=== PATIENT | female | born 1990 | race Hispanic/Latino ===

== ENCOUNTER → 2019-07-25 | Outpatient (CLI) | payer OTHER ==
--- NOTE | 2019-07-25 21:26 | ECGEPIP ---
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
== END ==
LOC: M EKG 13:13
PROVIDERS: ATTEND Advanced Practice Midwife
DX: E11.9 Type 2 diabetes mellitus without complications (principal)

== ENCOUNTER → 2019-10-19 | Outpatient (CLI) | payer OTHER ==
--- NOTE | 2019-10-19 10:57 | REP ---
REASON FOR EXAM: anatomy. COMPARISON: None. Multiple ultrasonographic images of the gravid uterus show a single living intrauterine gestation in the kami breech presentation. Doppler interrogation of the heart shows a heart rate of 165 beats per minute. The placenta is posterior and not low lying. The subjective amniotic fluid volume is within normal limits. The cervix measures 3.3 cm in length and is closed. Evaluation of the maternal adnexal spaces show no abnormalities. BPD 5.7 cm = 23 weeks 3 days HC 22.1 cm = 24 weeks 1 day AC 20.2 cm = 24 weeks 6 days FL 4.3 cm = 24 weeks 1 day The estimated weight is 694 grams which is at the 57th percentile for a 24 week 0 day gestational age. anatomical structures seen as unremarkable are as follows: cranium, four chamber heart, stomach, cord insertion, three vessel umbilical cord, kidneys, urinary bladder, and extremities. Structures suboptimally visualized are as follows: thalami, cavum septum pellucidum, cerebellum, cisterna magna, right and left ventricular outflow tracts, and spine. IMPRESSION: Single living intrauterine gestation as described above with an estimated gestational age of 24 weeks 1 day via composite criteria and an estimated date of delivery of 02/07/2020 by today's exam. No anomalies were detected, however, I recommend a followup examination to better image those structures not well seen today as described above. Electronically Signed by Binh Valdez DO 10/19/2019 11:10 A
== END ==
LOC: M RAD 09:26
PROVIDERS: ATTEND Obstetrics & Gynecology
DX: Z34.82 Encounter for supervision of other normal pregnancy, second trimester (principal); Z3A.23 23 weeks gestation of pregnancy

== ENCOUNTER 2020-01-21 08:27 | Inpatient (IN) | payer OTHER ==
[~2020-01-21] VITALS: Ht 154.9 cm; Wt 126.6 kg
[2020-01-21 08:50] VITALS: BP 115/67
[2020-01-21] MEDS ORDERED: NS 1,000 ML IV SCH ×2 (09:15→09:58)
[2020-01-21] MEDS ORDERED: LACTATED RINGER'S 1000 ML IV ONE (09:15)
[2020-01-21] MEDS ORDERED: PENICILLIN G POTASSIUM IV 5 MU in D5W MINI-BAG PLUS 100 ML IV STA (09:52)
[2020-01-21 09:55] LABS: HEMATOCRIT 36.5 % (36.0-47.0); HEMOGLOBIN 11.6 g/dl (12.0-15.5); MEAN CORPUSCULAR HEMOGLOBIN 26.7 pg (27.0-33.0); MEAN CORPUSCULAR HGB CONC 31.8 g/dl (32.0-36.5); MEAN CORPUSCULAR VOLUME 83.9 fl (80.0-96.0); PLATELET COUNT, AUTOMATED 265 10^3/uL (150-450); RED BLOOD COUNT 4.35 10^6/uL (4.00-5.40); WHITE BLOOD COUNT 8.5 10^3/uL (4.0-10.0)
[2020-01-21] MEDS ORDERED: INSULIN REGULAR IN 0.9 % NACL 100 UNIT in IV 1 EA IV SCH ×2 (09:58)
[2020-01-21] MEDS ORDERED: INSULIN IV RATE CHANGE DOCUMENTATION ML/HR XX SCH (10:00)
[2020-01-21] MEDS ORDERED: INSUN SC ×2 (10:03)
[2020-01-21] MEDS ORDERED: NOVOINJ SC (10:03)
[2020-01-21] MEDS ORDERED: INSUH10VL SC (10:03)
[2020-01-21 10:05] LABS: GLUCOSE,RANDOM 84 MG/DL (LESS THAN 200)
[2020-01-21] MEDS ORDERED: ASPI81CH33 PO (10:05)
[2020-01-21] MEDS ORDERED: ESSE250T PO (10:05)
[2020-01-21] MEDS ORDERED: PRENTAB9 PO (10:05)
[2020-01-21 10:49] LABS: HEMOGLOBIN A1c 7.1 %
--- NOTE | 2020-01-21 12:20 | HPE ---
DATE OF ADMISSION: 01/21/2020 HISTORY: This lady is a 29-year-old, 4, para 1, abort 2, last menstrual period (LMP) uncertain. Estimated date of confinement (EDC) is 02/08/2020, at 37 and 3 weeks of gestation, with a history spontaneous rupture of membranes of clear liquor and no labor. Risk factors are she has a body mass index (BMI) of 47.4, class 3 obesity. She is noncompliant regarding her insulin or her appointments. Last seen was 10/06/2019. She has a history of depression. She is unknown group B streptococcus (GBS) status, was chlamydia positive, test of cure was negative, and by age induration of diabetes she is class C. She started at age 18 taking metformin and then she discontinued, and then when she was she declined to use her insulin, and she did use of insulin in this she never really was compliant or well-controlled. PAST HISTORY: June 2016, 40 weeks, spontaneous delivery, 6 pounds 14 ounces female. 2014, spontaneous . 2019, spontaneous . She does not know the types of insulin that she is taking except one is clear and is cloudy, and she did not take her insulin this morning. In reviewing her chart from September, she was suppose to take NovoLog 10 and NPH 20 at breakfast, at dinner NovoLog 8 and at bedtime NPH of 8. She could not produce for us any sugar logs. Labs are O+. HIV negative. Hepatitis negative. RPR negative. Rubella, varicella immune. Pap normal. Urine negative. Gonorrhea and chlamydia are negative. Her 1-hour glucose was 299. GBS status was unknown. Blood pressure is 115/83, respirations are 20, pulse is 83, and temperature is 97.8. Hemoglobin 11.6, hematocrit 36.5, platelets are 265, and her spot glucose is 84. Her A1c is 7.4. Her mean plasma glucose is 157. Our plan of care, first of all she is grossly ruptured, Nitrazine positive and copious amount of fluid. On digital examination, the cervix is very posterior. Presenting part is not in the pelvis. It appears to be either transverse or difficult to assess because of her BMI status. She does have a category 1 strip and ultrasound is pending. Our plan of management is to give her prophylactic antibiotics for GBS, start an insulin drip, ultrasound for evaluation, position and weight. Notify neonatology. The patient understands the plan of care. The rest examination unremarkable. Normocephalic, atraumatic. Neck full range of motions. Pupils equal and reactive to light. Distal pulses symmetric. No evidence of deep venous thrombosis (DVT), pulmonary embolism (PE), or superficial phlebitis. Chest is clear bilaterally bases. No wheezes or rhonchi. No costovertebral angle (CVA) tenderness. Abdomen is soft, four quadrant bowel sounds are noted. She has no urgency or frequency. No nausea, vomiting, diarrhea, or constipation. In summary, we have a 37+ week of gestation, uncontrolled class C diabetic with an unstable lie.
--- NOTE | 2020-01-21 12:56 | IPN ---
DATE: 01/21/2020 This lady is a 29-year-old 3, para 1 who came in with spontaneous rupture of membranes at 37 weeks of gestation. She is a noncompliant patient. She is a class C diabetic who intermittently takes her insulin. She does not come to the appropriate appointments, but she came in because of spontaneous rupture of membranes of clear liquor. GBS status was unknown. We examined her and could not find the presenting part and therefore we did a bedside ultrasound, which indicated there was a live intrauterine fetus in breech presentation. heart rate was 124. Placenta was grade 2, the amniotic fluid showed an hydramnios because of her premature rupture of membranes. She sonographically was estimated at 37 and 1 weeks' of gestation, estimated weight was 3293 grams, 7 pounds 4 ounces at the 61st percentile for 37 weeks. The other interesting aspect is that the ST ratio was 3.08, which is elevated over the high normal of 2.60. We discussed the findings with the patient because the fetus was not in the pelvis and documentation shows that it is a breech presentation. The patient admitted to having decreased movement since last evening which may or may not account for position and/or elevated ST ratio. We explained to the patient that the best option and the safest option at this time with decreased movement and kami breech presentation, elevated ST ratio, uncontrolled diabetes would be a primary section under appropriate antibiotic umbrella and the NICU in attendance. The patient declined to have a section saying it was not an option. Her other comments which were quite striking is that if is an animal has a baby in and it dies, they can always have another one and she seems to be quite complacent with the fact this baby has an adverse outcome, she can always have another baby. The other issue was that she is quite disappointed it is not a male. She already says she has a female at home and she was also saying that she has to think of her 3-year-old at home as opposed to this baby. We are awaiting her to come to have a consultation regarding the safest method of delivery for this baby and the patient. In the meantime, there is a category one strip. There is no contractions, copious amount of fluid and still high presenting part.
[2020-01-21] MEDS ORDERED: ACETAMINOPHEN 650 MG SUPP PR SCH (13:15)
[2020-01-21] MEDS ORDERED: ceFAZolin SOD 2 GM in IV 1 EA IV ONE (13:15)
[2020-01-21] MEDS ORDERED: BUPIVACAINE HCL 0.25% 10ML VIAL SC ONE (13:15)
[2020-01-21] MEDS ORDERED: BICITRA 30ML SOLN UDC PO ONE (13:15)
[2020-01-21] MEDS ORDERED: MORPHINE PRES-FREE INJ 10 MG/10 ML VIAL (J2274) As Ordered ONE (13:34)
[2020-01-21] MEDS ORDERED: OXYTOCIN 30 UNITS IN 0.9% NaCl 500ML IV BAG (J2590) As Ordered ONE ×2 (13:35→16:22)
[2020-01-21] MEDS ORDERED: OXYTOCIN INJ 10 UNITS/ML VIAL (J2590) As Ordered ONE ×2 (13:36→14:46)
[2020-01-21] MEDS ORDERED: ACETAMINOPHEN 650 MG SUPP As Ordered ONE (13:37)
[2020-01-21] MEDS ORDERED: ONDANSETRON 4MG/2ML VIAL As Ordered ONE (13:38)
[2020-01-21] MEDS ORDERED: ePHEDrine SULFATE 25 MG/5 ML(5MG/ML) SYRINGE As Ordered ONE (13:38)
[2020-01-21] MEDS ORDERED: dexameTHASONE 4 MG/ML 1ML VIAL (J1100 PER 1MG) As Ordered ONE (13:38)
[2020-01-21] MEDS ORDERED: KETOROLAC 60MG 2ML VIAL As Ordered ONE (13:38)
[2020-01-21] MEDS ORDERED: PHENYLephrine HCL 500 MCG/5 ML (100MCG/ML) SYRINGE (J2370) As Ordered ONE ×2 (13:38→14:23)
[2020-01-21] MEDS ORDERED: AZITHROMYCIN INJ 500 MG, VIAL MATE ADAPTER 1 EACH in D5W 250 ML IV ONE (14:00)
[2020-01-21] MEDS ORDERED: PENICILLIN G POTASSIUM IV 2.5 MU in IV 1 EA IV SCH (14:00)
[2020-01-21] MEDS ORDERED: ACETAMINOPHEN 650 MG SUPP PR ONE (14:00)
[2020-01-21] MEDS ORDERED: NALBUPHINE HCL 10 MG/ML AMP (J2300) IV PRN (14:10)
[2020-01-21] MEDS ORDERED: ONDANSETRON 4MG/2ML VIAL IV PRN (14:10)
[2020-01-21] MEDS ORDERED: METOCLOPRAMIDE INJ 10MG/2ML VIAL (J2765 PER 1) IV PRN (14:10)
[2020-01-21] MEDS ORDERED: NALOXONE INJ 0.4MG/1ML VIAL (J2310 PER 1MG) IV PRN ×2 (14:10)
[2020-01-21] MEDS ORDERED: diphenhydrAMINE 50MG/ML VIAL (J1200) IV PRN (14:10)
[2020-01-21] MEDS ORDERED: MIDAZOLAM INJ 2MG/2ML VIAL (J2250 PER 1MG) As Ordered ONE (14:42)
[2020-01-21 14:51] LABS: CORD GAS ABE V -1.2; CORD GAS HCO3 V 25.4 MEQ/L; CORD GAS O2 SAT V 74.6 %; CORD GAS PCO2 V 49.2 mmHg; CORD GAS PH V 7.33 UNITS; CORD GAS PO2 V 32.7 mmHg; CORD GAS SBC V 22.9 MEQ/L; CORD GAS TCO2 V 26.9 MEQ/L
[2020-01-21 14:52] LABS: CORD GAS ABE A -0.7; CORD GAS HCO3 A 28.7 MEQ/L; CORD GAS O2 SAT A 15.2 %; CORD GAS PCO2 A 69.1 mmHg; CORD GAS PH A 7.236 UNITS; CORD GAS PO2 A 11.4 mmHg; CORD GAS SBC A 21.9 MEQ/L; CORD GAS TCO2 A 30.8 MEQ/L
[2020-01-21] MEDS ORDERED: propofoL 200 MG/20 ML VIAL As Ordered ONE (14:54)
[2020-01-21] MEDS ORDERED: LIDOCAINE 2% 100MG/5ML SDV (FOR ANES.) As Ordered ONE (15:06)
--- NOTE | 2020-01-21 15:23 | REP ---
OB ULTRASOUND FOLLOWUP: 01/21/2020. COMPARISON: 10/19/2019 CLINICAL HISTORY: Supervision of . Premature rupture of membranes. Evaluate weight and lie. FINDINGS: By initial ultrasound, she would be 37 weeks 4 days with EDC 02/07/2020. Today's study shows a single intrauterine gestation in breech position. There is a posterior grade 2 placenta but no previa or abruption. There is anhydramnios with no measurable fluid. motion was observed. Cervix is obscured on these images. BIOMETRY:BPD 8.9 cm = 36 weeksHC 32.7 cm = 37 weeks 1 dayAC 34.7 cm = 38 weeks 4 daysFL 7.2 cm = 37 weeksHL 6.3 cm = 36 weeks 5 days This gives average ultrasound age 37 weeks 1 day with EDC 02/10/2020. Measurement ratios are in the normal range. Estimated weight 3293 grams or 7 pounds 4 ounces. This is 61st percentile for her dating. [place] umbilical artery Doppler shows an S/D ratio of 3.08 with a normal range 1.6-2.6. Forward diastolic flow was maintained throughout, resistive index is 0.68. heart rate 124 and regular. IMPRESSION: 1. Single intrauterine gestation in breech position with a posterior grade 2 placenta without previa or abruption. Cervix obscured. 2. There is no visible amniotic fluid. heart rate 124. 3. Elevated umbilical artery Doppler S/D ratio 3.08 with a normal range up to 2.6. Forward diastolic flow is maintained throughout. 4. Average ultrasound age by today's exam, 37 weeks 1 day, by initial exam 37 weeks 4 days, by LMP 37 weeks 3 days. Estimated weight 61st percentile for 37 weeks 3 days and is 3293 grams or 7 pounds 4 ounces. Electronically Signed by Piyush Richard MD 01/21/2020 07:08 P
[2020-01-21] MEDS ORDERED: LR 1,000 ML IV SCH (15:57)
[2020-01-21] MEDS ORDERED: RHOGAM 300 MCG (1500 IU) INJ (J2790) IM SCH (16:00)
[2020-01-21] MEDS ORDERED: MOM 30ML SUSPENSION UDC PO PRN (16:00)
[2020-01-21] MEDS ORDERED: ACETAMINOPHEN 650 MG SUPP PR PRN (16:00)
[2020-01-21] MEDS ORDERED: METHYLERGONOVINE MALEATE 0.2 MG TAB PO PRN (16:00)
[2020-01-21] MEDS ORDERED: DOCUSATE SODIUM 100 MG CAP PO PRN (16:00)
[2020-01-21] MEDS ORDERED: IBUPROFEN 600MG TAB PO PRN (16:00)
[2020-01-21] MEDS ORDERED: PERCOCET 5MG/325MG TAB PO PRN ×2 (16:00)
[2020-01-21] MEDS ORDERED: OXYTOCIN INJ 10 UNITS/ML VIAL (J2590) IV ONE (16:00)
[2020-01-21] MEDS ORDERED: ANUSOL HC CREAM 30GM TOP PRN (16:00)
[2020-01-21] MEDS ORDERED: ACETAMINOPHEN TAB 650MG DOSE (2X325MG) PO PRN (16:00)
[2020-01-21] MEDS ORDERED: MEASLES,MUMPS,RUBELLA VACCINE INJ (MMR-II) (90707) SC SCH (16:00)
[2020-01-21] MEDS ORDERED: IBUPROFEN 800 MG TAB PO PRN (16:00)
[2020-01-21] MEDS: OXYTOCIN DRIP 30 UNITS in IV 1 EA IV SCH ×3 (16:33→23:57)
[2020-01-21 17:00] VITALS: BP 124/61
[2020-01-21 17:30] VITALS: BP 141/70
[2020-01-21 18:30] VITALS: BP 132/66
[2020-01-21] MEDS: MAGNESIUM OXIDE 400 MG TAB (MAG-OX) PO SCH (19:09)
[2020-01-21 19:30] VITALS: BP 133/72
[2020-01-21] MEDS: KETOROLAC 30 MG/ML 1ML VIAL IV SCH (21:59)
[2020-01-21 22:00] VITALS: BP 141/84
[2020-01-22] MEDS ORDERED: NS 800 ML IV ONE (01:30)
[2020-01-22 02:00] VITALS: BP 138/64
[2020-01-22] MEDS: KETOROLAC 30 MG/ML 1ML VIAL IV SCH ×2 (02:54→07:59)
[2020-01-22] MEDS ORDERED: NS 1,000 ML IV SCH (05:30)
[2020-01-22 06:00] VITALS: BP 129/74
[2020-01-22 07:47] LABS: MEAN CORPUSCULAR HEMOGLOBIN 26.8 pg (27.0-33.0); MEAN CORPUSCULAR HGB CONC 31.8 g/dl (32.0-36.5); MEAN CORPUSCULAR VOLUME 84.3 fl (80.0-96.0); PLATELET COUNT, AUTOMATED 255 10^3/uL (150-450); RED BLOOD COUNT 3.32 10^6/uL (4.00-5.40); WHITE BLOOD COUNT 10.5 10^3/uL (4.0-10.0)
[2020-01-22] MEDS: PRENATAL VITAMINS CHEWABLE TABLET PO SCH (07:58)
[2020-01-22] MEDS: MAGNESIUM OXIDE 400 MG TAB (MAG-OX) PO SCH (07:58)
[2020-01-22 08:00] LABS: HEMOGLOBIN 8.9 g/dl (12.0-15.5)
[2020-01-22] MEDS ORDERED: PRENATAL VITAMINS CHEWABLE TABLET PO SCH (09:00)
[2020-01-22 10:00] VITALS: BP 114/58
--- NOTE | 2020-01-22 10:11 | IPN ---
DATE: 01/22/2020 DAY #1/POSTOPERATIVE DAY #1: This lady is a 29-year-old, 4, now para 2, who was admitted with premature rupture of membranes at 37 weeks, status group B streptococcus (GBS) unknown. Her risk factors, she is a class C diabetic, body mass index (BMI) of 47.4, noncompliant, kami breech presentation with premature rupture of membranes, elevated ST ratio, depression, and she had a primary section for a live female 8 pounds 2 ounces (3680 grams), score of 9 and 9 at one and five minutes, respectively. She had an arterial blood gas of 7.23 with a base excess of -0.7, venous pH of 7.33, base excess of -1.2. On her first day, we discussed phlebitis, cystitis, mastitis, endometritis, cellulitis, diet, exercise, pain management, perineal breast and wound care. Soria catheter has just been removed. The patient is going to attempt to void. Overnight she had some issues with pain control, which are now under control. She is not planning on breast-feeding at the present time. We discussed the use of sequentials in order to decrease the incidence of pulmonary embolism (PE) and deep venous thrombosis (DVT) as her BMI is elevated, and also the use of the incentive spirometry machine. The patient expressed understanding of same. Our plans are for possible discharge tomorrow. Baby will be reviewed by the pre kindergarten teacher as it is a large for gestational age for 37 weeks. Due to the uncontrolled diabetes, we have ordered her lab work including a fasting and A1c to evaluate the issues regarding her diabetes. During her , she intermittently took her insulin, when she is off she intermittently takes metformin. Plans are to re-educate her regarding the use of the metformin. Also, the patient really needs to have weight reduction, exercise, all which will be discussed prior to discharge. She should have a 2-week incision check, a 6-week check.
[2020-01-22 14:00] VITALS: BP_SYST 114; BP_SYST 120; BP_DIAS 58; BP_DIAS 64
[2020-01-22] MEDS: IBUPROFEN 800 MG TAB PO SCH (17:34)
[2020-01-22 18:00] VITALS: BP 137/72
[2020-01-22 22:00] VITALS: BP 123/67
[2020-01-23] MEDS: IBUPROFEN 800 MG TAB PO SCH ×2 (01:04→08:28)
[2020-01-23 02:00] VITALS: BP 114/65
[2020-01-23 06:00] VITALS: BP 145/67
--- NOTE | 2020-01-23 07:53 | IPNPDOC ---
Progress Note Date of Service: Jan 23, 2020 Day#: 2 Progress Note SUBJECT: Patient is a 29 yo s/p PLTCD for breech presentation POD #2. Serafin hall has history of DM and was on metformin and stopped about 2 yrs prior to being . patient is on insulin throughout this , though she missed her care completely during the third trimester. Today without concerns. She has been ambulating, voiding spontaneously without issue and tolerating regular diet. Breast feeding without issue. Reports lochia is like a normal period. patient plans on oral contraceptive . OBJECTIVE: VITAL SIGNS: Within normal limits, afebrile. Alert and oriented times three. Abdomen: Fundus firm at U-2, abdomen Soft, appropriately tender, dressing on LE: symmetrical bilateral edema, non pitting, non tender, no erythema A/P pod #2, doing well. glucose has been normal throughout hospital stay. discussed care. start norqd 2 weeks . plan for discharge home today with close interval f/u in clinic. Le, DO VS, I&O, 24H, Fishbone Vital Signs/I&O Vital Signs Date Time Temp Pulse Resp B/P (MAP) Pulse Ox O2 Delivery O2 Flow Rate FiO2 01/23/20 06:00 97.9 67 18 145/67 (93) 98 Room Air I&O- Last 24 Hours up to 6 AM 01/23/20 05:59 Output Total 375 ml Balance -375 ml Laboratory Data 24H LABS Laboratory Tests 2 01/22/20 10:34: Glucose 2 Hour Postprandial 78 01/22/20 16:30: Bedside Glucose (Misc Panel) 101 01/22/20 22:09: Bedside Glucose (Misc Panel) 73 01/23/20 06:05: Bedside Glucose (Misc Panel) 63L TOMER SMITH DO Jan 23, 2020 07:53
--- NOTE | 2020-01-23 07:54 | OBDS ---
[facility] Obstetrical Discharge Sum. Obstetrical Discharge Summary : 4 Term: 2 Pre-term: 0 Abortions: 2 Livin VDRL: Non-Reactive Rh: Positive Rubella: Immune Infant Weight: pounds (8), ounces (0) Anesthesia: Regional Anesthesia A/P, Post Course List any complications Admission diagnosis: 1. Rupture membranes at 37+3wks 2. breech presentation 3. Morbid Obesity 4. Diabetes Discharge diagnosis: 1. 2. Status post primary low transverse section 3. Morbid obesity 4. Diabetes Condition at Discharge: stable Discharge Instructions: Home Activity: as tolerated Diet: diabetic diet Medications: filled at [facility] Follow-up: Call [facility] to make 1-[address] Wheat Hospital Course: Patient presented with rupture of membranes at 37+3wks gestation and breech presentation. She underwent primary low transverse section. course uncomplicated. Patient discharged home on day #2. DO LUIS Gillespie LUAT N. DO Jan 23, 2020 01:39
[2020-01-23] MEDS: PRENATAL VITAMINS CHEWABLE TABLET PO SCH (08:27)
[2020-01-23] MEDS: MAGNESIUM OXIDE 400 MG TAB (MAG-OX) PO SCH (08:27)
[2020-01-23 10:00] VITALS: BP 124/58
== END 2020-01-23 12:45 | disposition home or self-care (01) | DRG 771 ==
LOC: M LDO 08:27 → M LDI 09:01 → M OBS 16:50
PROVIDERS: ADMIT Obstetrics & Gynecology; ATTEND Obstetrics & Gynecology
PROC: 10D00Z1 Extraction of Products of Conception, Low, Open Approach (ICD-10-PCS; principal; 2020-01-21 14:00)
DX: O32.1XX0 Maternal care for breech presentation, not applicable or unspecified (principal); O24.12 Pre-existing type 2 diabetes mellitus, in childbirth; Z3A.37 37 weeks gestation of pregnancy; E66.9 Obesity, unspecified; Z91.14 Patient's other noncompliance with medication regimen; E11.65 Type 2 diabetes mellitus with hyperglycemia; Z79.4 Long term (current) use of insulin; O99.214 Obesity complicating childbirth; O42.02 Full-term premature rupture of membranes, onset of labor within 24 hours of rupture; Z37.0 Single live birth

== ENCOUNTER 2020-01-31 09:42 | Emergency (ER) | payer OTHER ==
[~2020-01-31] VITALS: Ht 154.9 cm; Wt 125.2 kg
[~2020-01-31 09:42] MED LIST: ASPI81CH33 PO; ESSE250T PO; INSUH10VL SC; INSUN SC; NOVOINJ SC; PRENTAB9 PO
[2020-01-31] MEDS ORDERED: ACET-861 PO (09:49)
[2020-01-31] MEDS ORDERED: DOCU100C16 PO (09:49)
[2020-01-31] MEDS ORDERED: NS 1,000 ML IV ONE (10:30)
[2020-01-31] MEDS ORDERED: ACETAMINOPHEN 500 MG TAB PO ONE (10:30)
[2020-01-31 11:00] LABS: BASO % 0.4 % (0.0-1.0); EOS # 0.1 10^3/uL (0.0-0.5); EOS % 1.9 % (0.0-3.0); HEMATOCRIT 27.1 % (36.0-47.0); HEMOGLOBIN 8.4 g/dl (12.0-15.5); LYMPH # 1.6 10^3/uL (1.5-5.0); LYMPH % 22.6 % (24.0-44.0); MEAN CORPUSCULAR HEMOGLOBIN 26.8 pg (27.0-33.0); MEAN CORPUSCULAR VOLUME 86.6 fl (80.0-96.0); MONO # 0.5 10^3/uL (0.0-0.8); MONO % 6.4 % (0.0-5.0); NEUTROPHILS # 4.8 10^3/uL (1.5-8.5); NEUTROPHILS % 66.5 % (36.0-66.0); PLATELET COUNT, AUTOMATED 384 10^3/uL (150-450); RED BLOOD COUNT 3.13 10^6/uL (4.00-5.40); WHITE BLOOD COUNT 7.2 10^3/uL (4.0-10.0)
[2020-01-31 11:08] LABS: PROTHROMBIN TIME 12.9 SECONDS (11.8-14.0)
[2020-01-31 11:09] LABS: PARTIAL THROMBOPLASTIN TIME 30.9 SECONDS (25.0-38.4)
[2020-01-31 11:09] LABS: APPEARANCE, URINE CLEAR (CLEAR); BACTERIA, URINE AUTO NEGATIVE (NEGATIVE); BILIRUBIN, URINE AUTO NEGATIVE (NEGATIVE); BLOOD, URINE BLOOD 3+ (NEGATIVE); COLOR, URINE YELLOW (YELLOW); GLUCOSE, URINE (UA) AUTO NEGATIVE (NEGATIVE); KETONE, URINE AUTO NEGATIVE (NEGATIVE); LEUKOCYTE ESTERASE, URINE AUTO NEGATIVE (NEGATIVE); NITRITE, URINE AUTO NEGATIVE (NEGATIVE); PROTEIN, URINE AUTO NEGATIVE (NEGATIVE); RBC, URINE AUTO 6 /HPF (0-3); SPECIFIC GRAVITY URINE AUTO 1.011 (1.002-1.035); SQUAMOUS EPITHELIAL CELL UR AU 0 /HPF (0-6); UROBILINOGEN, URINE AUTO 0.2 mg/dL (0.0-2.0); WBC, URINE AUTO 1 /HPF (0-3)
[2020-01-31 11:10] LABS: ALBUMIN 2.5 GM/DL (3.2-5.2); ALT/SGPT 21 U/L (12-78); BILIRUBIN,DIRECT < 0.1 MG/DL (0.0-0.2); BILIRUBIN,TOTAL 0.3 MG/DL (0.2-1.0); BLOOD UREA NITROGEN 9 MG/DL (7-18); CALCIUM LEVEL 8.9 MG/DL (8.5-10.1); CARBON DIOXIDE LEVEL 28 MEQ/L (21-32); CHLORIDE LEVEL 106 MEQ/L (98-107); GLOMERULAR FILTRATION RATE > 60.0 (>60); GLUCOSE, FASTING 94 MG/DL (70-100); MAGNESIUM LEVEL 1.7 MG/DL (1.8-2.4); POTASSIUM SERUM 4.4 MEQ/L (3.5-5.1); SODIUM LEVEL 141 MEQ/L (136-145); TOTAL PROTEIN 5.9 GM/DL (6.4-8.2)
--- NOTE | 2020-01-31 11:47 | REP ---
Head CT without contrast: History: Migraines since . Posterior occipital. Dizziness. Comparison study: No comparison brain imaging. CT findings: Bone window settings demonstrate an intact bony calvarium. There is no evidence of skull fracture or incidental bony calvarial lesion. The visualized paranasal sinuses appear clear. No intraorbital abnormality is seen. On soft tissue window setting images; the lateral, third, and fourth ventricles are normal in size and position. Leger-white differentiation pattern is normal above and below the tentorium. There are is no evidence of intracranial hemorrhage. No mass, edema, infarction, or midline shift is seen. No extra-axial fluid collection is appreciated. Impression: Negative noncontrast head CT. Electronically Signed by Rakesh Magallanes MD 01/31/2020 11:39 A
[2020-01-31] MEDS ORDERED: METOCLOPRAMIDE INJ 10MG/2ML VIAL (J2765 PER 1) IV ONE (12:45)
[2020-01-31] MEDS ORDERED: diphenhydrAMINE 50MG/ML VIAL (J1200) IV ONE (12:45)
[2020-01-31] MEDS ORDERED: MAG SULF 1GM/100ML (MAG RUN) 1 GM in IV 1 EA IV ONE (12:45)
[2020-01-31 14:55] LABS: CREATININE,RANDOM URINE 48.4 MG/DL; TOTAL PROTEIN,RANDOM URINE 12.4 MG/DL (0.0-12.0)
[2020-01-31] MEDS ORDERED: LABE100T36 PO (16:04)
[2020-01-31 16:15] VITALS: BP 162/88
[2020-01-31 16:38] VITALS: BP 178/90
[2020-01-31] MEDS ORDERED: LABETALOL 100 MG TAB PO ONE (17:00)
[2020-01-31] MEDS ORDERED: FUROSEMIDE 20MG/2ML VIAL (J1940) IV ONE (17:00)
== END 2020-01-31 16:48 | disposition home or self-care (01) ==
LOC: M ED 09:42
DX: O16.5 Unspecified maternal hypertension, complicating the puerperium (principal); O24.13 Pre-existing type 2 diabetes mellitus, in the puerperium; E11.9 Type 2 diabetes mellitus without complications; Z79.899 Other long term (current) drug therapy; Z87.891 Personal history of nicotine dependence
CPT/HCPCS: 70450; 80048; 80076; 81001; 82570; 83735; 84156; 85025; 85610; 85730; 87088; 87186; 96361; 96365; 96366; 96375; 99284; J1200; J1940; J2765; J3475